=== PATIENT | female | born 1985 | race Caucasian/White ===

== ENCOUNTER 2018-01-26 06:18 | Day surgery (SDC) | payer OTHER ==
--- NOTE | 2018-01-17 16:49 | HP ---
PREOPERATIVE HISTORY AND PHYSICAL: DATE OF ADMISSION/SURGERY: 01/26/18 [facility] ATTENDING SURGEON: Suzy Ribeiro MD.* (DICTATED BY RENNY TOMPKINS) PROCEDURE: Right wrist carpal tunnel release. CHIEF COMPLAINT: Bilateral hand numbness and tingling. HISTORY OF PRESENT ILLNESS: This is a 33-year-old female. This is a Workers' Comp case. Gina does a lot of typing and writing at her job and started having symptoms of numbness and tingling in her bilateral hands several years ago. She denies any specific injury. She notes tingling and numbness in her fingers in both hands, the right hand is slightly worse than the left. She has failed conservative treatment including physical therapy and wrist braces. She does have symptoms that awaken her at night if she does not have the wrist braces on. She has had a nerve conduction study EMG which showed moderate carpal tunnel syndrome on the right and mild carpal tunnel syndrome on the left. The patient is interested in pursuing more definitive treatment for her symptoms and has consented to proceed with surgical intervention at this time in the form a right wrist carpal tunnel release. PAST MEDICAL HISTORY: Seasonal allergies. PAST SURGICAL HISTORY: 1. Adenoidectomy. 2. D and C. CURRENT MEDICATIONS: 1. Loratadine 10 mg daily p.r.n. seasonal allergies. 2. Tylenol 8 Hour p.r.n. pain. 3. Women's Multivitamin Plus daily. ALLERGIES: No known drug allergies. FAMILY MEDICAL HISTORY: Diabetes and cancer. 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 She denies tobacco use and illicit drug use. She does drink alcohol on rare occasion. REVIEW OF SYSTEMS: General: Negative for fevers, chills, or night sweats. No known anesthesia problems. HEENT: Negative for headache, lightheadedness, or syncopal episodes. Integumentary: Negative for abrasions, lesions, or open wounds. Cardiothoracic: Negative for hypertension, chest pain, palpitations or edema. Pulmonary: Negative for shortness of breath with exertion, chronic cough, COPD. GI: Negative for nausea, vomiting, diarrhea, constipation and GERD. : Negative for nocturia, urinary frequency, urgency, history of UTIs and kidney problems. Musculoskeletal: Positive for current complaint. Negative for chronic or intermittent back pain or history of fractures. Neurological: Positive for numbness and tingling of bilateral hands. Negative for history of seizure, stroke or epilepsy. Endocrine: Negative for diabetes and thyroid issues. Hemologic: Negative for easy bruising, anemia, excessive bleeding. No history of DVT. Infectious Disease: Negative for history of MRSA , hepatitis C and HIV. PHYSICAL EXAMINATION GENERAL: Well-developed, well-nourished 33-year-old female in no acute distress. VITAL SIGNS: Height 5 feet 4 inches, weight 247 pounds. Pulse rate 96, blood pressure 124/84. HEENT: Normocephalic, atraumatic. Pupils are equal, round, and reactive to light and accommodation. Extraocular movements are intact. Throat is clear. NECK: Supple. No palpable lymph nodes. PULMONARY: Lungs are clear to auscultation bilaterally. No wheezes, rales or rhonchi. CARDIOVASCULAR: Regular rate and rhythm. S1, S2. No murmurs, rubs or gallops. No edema. ABDOMEN: Positive bowel sounds. Soft, nontender. NEUROLOGIC: Alert and oriented x3. Cranial nerves II through XII are intact. Sensation is intact to light touch. MUSCULOSKELETAL: On exam of bilateral upper extremities, there is no thenar wasting on either hand, but she does have weakness with thumb abduction. She has a negative Tinel sign at the ulnar nerves, at the elbows, but a positive Tinel sign at the median nerve to the wrist. She has full flexion and extension of the fingers and good motion in her wrist. She has no weakness with finger abduction. There is decreased sensation to the tip of the middle finger on both hands today. IMAGING STUDIES: Nerve conduction EMG shows moderate carpal tunnel syndrome on the right, mild carpal tunnel syndrome on the left. IMPRESSION: Bilateral carpal tunnel syndrome, right wrist and left. PLAN: The patient is scheduled to undergo a right wrist carpal tunnel release with Dr. Ribeiro on 01/26/18. She will return to the office 10 to 14 days postop for followup and suture removal. A prescription for Ultracet was e-scribed to the patient's pharmacy for postoperative pain management. RENNY TOMPKINS [id number]/[facility] #: [id number] ERNESTINA
[~2018-01-26 06:18] MED LIST: Buffered Lidocaine 0.9% SYRIN* 5 ML/SYR SYRINGE INTRADERM ONE
[2018-01-26] MEDS ORDERED: Lidocaine 1% INJ* 10 MG/ML 30 ML SDV ONE (07:06)
[2018-01-26] MEDS ORDERED: Propofol* 10 MG/ML 20 ML BTL IV PUSH ONE (07:19)
[2018-01-26] MEDS ORDERED: Midazolam* 1 MG/ML 2 ML VIAL (2 MG) ONE (07:19)
[2018-01-26] MEDS ORDERED: fentaNYL* 50 MCG/ML 2 ML VIAL (100 MCG VIAL) ONE (07:19)
[2018-01-26 08:06] VITALS: BP 104/78
[2018-01-26] MEDS ORDERED: Naloxone* 0.4 MG/ML 1 ML VIAL IV PRN (08:36)
--- NOTE | 2018-01-26 14:53 | OP ---
DATE OF OPERATION: 01/26/18 [facility] DATE OF : 81 SURGEON: Suzy Ribeiro MD POLICEWOMAN: RENNY Gupta ANESTHESIA: Local MAC. PRE-OP DIAGNOSIS: Right carpal tunnel syndrome. POST-OP DIAGNOSIS: Right carpal tunnel syndrome. OPERATIVE PROCEDURE: Right carpal tunnel release. ESTIMATED BLOOD LOSS: Zero. TOURNIQUET TIME: Approximately 5 minutes. INDICATIONS FOR PROCEDURE: Gina is a 33-year-old woman with numbness and tingling in the median nerve distribution of her right hand. She presents for right carpal tunnel release. DESCRIPTION OF PROCEDURE: The patient was brought to the operating room, was given a sedation anesthetic and a local infiltration of 10 cc of 1% plain lidocaine in the palm of her right hand. The skin of her right hand and forearm was prepped and draped in the usual sterile fashion. The hand and forearm were exsanguinated and the tourniquet elevated to 250 mmHg. A longitudinal incision was made in the palm in line with the ring finger. We dissected sharply through the subcutaneous tissue down to the transverse carpal ligament. The ligament was divided sharply with a knife and then more proximally with the scissors. The nerve was dissected free from the surrounding tissue and there was an area of moderate compression at the mid portion of the ligament. The wound was irrigated and the skin edges were reapproximated with 4-0 nylon suture. The wound was dressed with Xeroform, 4x4 , Webril, and an Chaparro wrap. The patient tolerated the procedure well, was brought to the recovery room in good condition. [id number]/[facility] [place] #: [id number] MTDSejal
== END 2018-01-26 08:17 | disposition home or self-care (01) ==
LOC: OREAST 06:18
PROVIDERS: ATTEND Orthopaedic Surgery
DX: G56.03 Carpal tunnel syndrome, bilateral upper limbs (principal); J30.2 Other seasonal allergic rhinitis
CPT/HCPCS: 81025; J2250; J2704; J3010

== ENCOUNTER 2018-06-08 07:15 | Day surgery (SDC) | payer OTHER ==
--- NOTE | 2018-05-26 12:21 | HP ---
PREOPERATIVE HISTORY AND PHYSICAL: DATE OF ADMISSION/SURGERY: 06/08/18 [facility] DATE OF OFFICE VISIT/ENCOUNTER: 05/17/18 ATTENDING SURGEON: Suzy Ribeiro MD * (DICTATED BY RENNY TOMPKINS) PROCEDURE: Left wrist carpal tunnel release. CHIEF COMPLAINT: Numbness and tingling, left hand. HISTORY OF PRESENT ILLNESS: This is a 33-year-old female, who complains of numbness and tingling in her left hand. This is a Workers' Comp case. The patient does a lot of typing and writing at her job and started having symptoms of numbness in her bilateral hands several years ago. She recently underwent a right carpal tunnel release and has done quite well with that. She denies any specific injury. She notes numbness and tingling in her left hand fingers. She has failed conservative treatment including physical therapy and wrist braces. She has symptoms that awaken her at night if she does not have the wrist brace on. She had a nerve conduction study/EMG, which showed mild carpal tunnel syndrome on the left. At this time, the patient is interested in pursuing definitive treatment for her left carpal tunnel symptoms and has consented to proceed with surgical intervention. PAST MEDICAL HISTORY: Seasonal allergies. PAST SURGICAL HISTORY: 1. Right carpal tunnel release. 2. Adenoidectomy. 3. D and C. CURRENT MEDICATIONS: 1. Chlor-Trimeton 4 mg daily p.r.n. seasonal allergies. 2. Tylenol 8 Hour p.r.n. pain. 3. Women's Multivitamin Plus daily. ALLERGIES: No known drug allergies. FAMILY MEDICAL HISTORY: Diabetes and cancer. 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 She denies tobacco use and illicit drug use. She does drink alcohol on rare occasion. REVIEW OF SYSTEMS: General: Negative for fevers, chills, night sweats. No known anesthesia problems. HEENT: Negative for headache, lightheadedness, or syncopal episodes. Integumentary: Negative for abrasions, lesions, or open wounds. Cardiothoracic: Negative for hypertension, chest pain, palpitations, edema. Pulmonary: Negative for shortness of breath with exertion, chronic cough , COPD. GI: Negative for nausea, vomiting, diarrhea, constipation, GERD. : Negative for nocturia, urinary frequency, urgency, history of UTIs, kidney problems. Musculoskeletal: Positive for current complaint. Negative for chronic or intermittent back pain or history of fractures. Neurological: Positive for numbness and tingling in the left hand. Negative for history of seizure, stroke, or epilepsy. Endocrine: Negative for diabetes and thyroid issues. Hematologic: Negative for easy bruising, anemia, excessive bleeding, history of DVT. Infectious Disease: Negative for history of MRSA, hepatitis C , HIV. PHYSICAL EXAMINATION GENERAL: Well-developed, well-nourished, 33-year-old female, in no acute distress. VITAL SIGNS: Height 5 feet 4 inches, weight 244 pounds, pulse rate 106, blood pressure 128/86. HEENT: Normocephalic, atraumatic. Pupils are equal, round, and reactive to light and accommodation. Extraocular movements are intact. Throat is clear. NECK: Supple. No palpable lymph nodes. PULMONARY: Lungs are clear to auscultation bilaterally. No wheezes, rales, or rhonchi. CARDIOVASCULAR: Regular rate and rhythm. S1, S2. No murmurs, rubs, or gallops. No edema. ABDOMEN: Positive bowel sounds, soft, nontender. NEUROLOGIC: Alert and oriented x3. Cranial nerves II through XII are intact. Sensation is intact to light touch. MUSCULOSKELETAL: On exam of her left hand/wrist, there is no thenar wasting, but she does have weakness with thumb abduction. She has a negative Tinel's sign at the ulnar nerve at the elbow, but positive Tinel's sign at the median nerve at the wrist. She has full flexion and extension of the fingers. Good motion of the wrist. No weakness with finger abduction. She has decreased sensation at the tip of the middle finger. IMAGING STUDIES: Nerve conduction/EMG shows mild carpal tunnel syndrome on the left. IMPRESSION: Left wrist carpal tunnel syndrome. PLAN: The patient is scheduled to undergo a left wrist carpal tunnel release with Dr. Ribeiro on 06/08/18. She will return to the office 10 days postop for followup and suture removal. A prescription for Ultracet was e-scribed to the patient's pharmacy for postoperative pain management. RENNY TOMPKINS [id number]/[facility] #: [id number] ERNESTINA
[~2018-06-08 07:15] MED LIST changes: +Famotidine IV* 10 MG/ML 2 ML (20 mg) IV ONE
[2018-06-08] MEDS ORDERED: Famotidine IV* 10 MG/ML 2 ML (20 mg) ONE (08:07)
[2018-06-08] MEDS ORDERED: Lidocaine 1% INJ* 10 MG/ML 30 ML SDV ONE (08:16)
[2018-06-08] MEDS ORDERED: Midazolam* 1 MG/ML 5 ML VIAL (5 MG) ONE (08:27)
[2018-06-08] MEDS ORDERED: fentaNYL* 50 MCG/ML 2 ML VIAL (100 MCG VIAL) ONE (08:27)
[2018-06-08] MEDS ORDERED: Ketorolac INJ* 30 MG/ML 1 ML VIAL ONE (08:35)
[2018-06-08] MEDS ORDERED: Ondansetron INJ* 2 MG/ML VIAL ONE (08:35)
[2018-06-08] MEDS ORDERED: Propofol* 10 MG/ML 20 ML BTL IV PUSH ONE (08:35)
[2018-06-08] MEDS ORDERED: Lidocaine 2% PF * 5 ML VIAL ONE (08:35)
[2018-06-08] MEDS ORDERED: DiMENhydriNATE IV* 50 MG/ML VIAL ONE (08:50)
[2018-06-08] MEDS ORDERED: Acetaminophen TAB* 325 MG PO PRN (08:58)
[2018-06-08] MEDS ORDERED: DiMENhydriNATE IV* 50 MG/ML VIAL IV PUSH PRN (08:58)
[2018-06-08 09:07] VITALS: BP 142/76
--- NOTE | 2018-06-08 22:20 | OP ---
CC: Dr. Ribeiro OPERATIVE REPORT: DATE OF OPERATION: 06/08/18 DATE OF : 81 SURGEON: Suzy Ribeiro MD FIELD RESEARCH ASSOCIATE: RENNY Gupta ANESTHESIA: Local MAC. PRE-OP DIAGNOSIS: Left carpal tunnel syndrome. POST-OP DIAGNOSIS: Left carpal tunnel syndrome. OPERATIVE PROCEDURE: Left carpal tunnel release. ESTIMATED BLOOD LOSS: Zero. TOURNIQUET TIME: Approximately 10 minutes. INDICATIONS FOR PROCEDURE: Gina is a 33-year-old female with numbness and tingling in the medial n erve distribution of her left hand. She presents for left carpal tunnel release. DESCRIPTION OF PROCEDURE: The patient was brought to the operating room, was given a sedation anesth etic and a local infiltration of 10 cc of 1% plain lidocaine in the palm of her left hand. Skin of h er left hand and forearm was prepped and draped in usual sterile fashion. The hand and forearm were exsanguinated and the tourniquet elevated to 250 mmHg. A longitudinal incision was made in the palm in line with the ring finger. We dissected sharply through the subcutaneous tissue down to the trans verse carpal ligament. The ligament was divided sharply with a knife and then more proximally with t he scissors. The nerve was dissected free from the surrounding tissue and there was an area of moder ate compression in the mid portion of the ligament. The ligament was very thickened. The wound was irrigated and the skin edges were reapproximated with 4-0 nylon suture. The wound was dressed with X eroform, 4x4, Webril, and Chaparro wrap. The patient tolerated the procedure well and was brought to the recovery room in good condition. [id number]/[facility] #: [id number]
== END 2018-06-08 09:25 | disposition home or self-care (01) ==
LOC: OREAST 07:15
PROVIDERS: ATTEND Orthopaedic Surgery
DX: G56.02 Carpal tunnel syndrome, left upper limb (principal); J30.2 Other seasonal allergic rhinitis; E66.9 Obesity, unspecified
CPT/HCPCS: 81025; J1240; J1885; J2250; J2405; J2704; J3010